=== PATIENT | male | born 1950 | race Caucasian/White ===

== ENCOUNTER → 2022-08-01 | Outpatient (CLI) | payer OTHER, SELFPAY ==
--- NOTE | 2022-08-01 09:50 | RAD_ITS ---
STUDY: X-RAY - LUMBAR SPINE REASON FOR EXAM: Male, 71 years old. Disease of spinal cord, unspecified TECHNIQUE: 3 view(s) of the lumbar spine were obtained. COMPARISON: None FINDINGS: Normal lumbar lordosis. There is no substantial scoliosis. Grade 1 retrolisthesis at L4-5. Narrowed L4-5 and L5-S1 disc spaces with endplate spurring. There is apparent spinal stenosis at L4-5 and L5-S1 exaggerated by shortened pedicles and facet arthropathy No evidence for acute fracture or subluxation. No lytic or sclerotic bony lesions are observed . The soft tissue structures are unremarkable. RAD/Lumbar Spine 2 or 3 Views IMPRESSION: Spondylosis and findings suggestive of spinal stenosis at L4-5 and L5-S1 which may be further assessed with CT or MRI. No evidence for acute fracture or other significant bony pathology Electronically Signed: Dima Irvin MD at 20:36 EDT ,
--- NOTE | 2022-08-01 09:50 | RAD_ITS ---
STUDY: X-RAY - THORACIC SPINE REASON FOR EXAM: Male, 71 years old. Disease of spinal cord, unspecified TECHNIQUE: 3 view(s) of the thoracic spine were obtained. COMPARISON: None. FINDINGS: Normal kyphosis of the thoracic spine. There is no substantial scoliosis. Normal thoracic vertebrae and endplates. Normal disc space heights. The soft tissue structures are unremarkable. RAD/Thoracic Spine 2 Views IMPRESSION: Normal x-ray examination of the thoracic spine. Electronically Signed: Long Mehta MD at 21:18 EDT ,
== END | disposition home or self-care (01) ==
LOC: RAD 09:37
PROVIDERS: Referring Provider Chiropractor; Visit Provider Chiropractor
DX: G95.9 Disease of spinal cord, unspecified (principal)
CPT/HCPCS: 72070; 72100